=== PATIENT | female | born 1960 | race Two or more races ===

== ENCOUNTER → 2017-09-23 07:27 | Outpatient (CLI) | payer OTHER | END | disposition home or self-care (01) | LOC: LAB 07:27 | DX: M45.0 Ankylosing spondylitis of multiple sites in spine (principal); M35.09 Sjogren syndrome with other organ involvement; M32.8 Other forms of systemic lupus erythematosus; L93.2 Other local lupus erythematosus; M13.88 Other specified arthritis, other site; M05.40 Rheumatoid myopathy with rheumatoid arthritis of unspecified site; M05.00 Felty's syndrome, unspecified site ==

== ENCOUNTER → 2017-10-03 07:09 | Outpatient (CLI) | payer OTHER | END | disposition home or self-care (01) | LOC: LAB 07:09 | DX: E78.00 Pure hypercholesterolemia, unspecified (principal) ==

== ENCOUNTER 2017-10-03 08:39 | Outpatient (CLI) | payer OTHER | END 2017-10-03 08:49 | disposition home or self-care (01) | LOC: LAB 08:39 | DX: R10.13 Epigastric pain (principal) ==

== ENCOUNTER 2017-10-04 07:54 | Outpatient (CLI) | payer OTHER | END 2017-10-04 08:55 | disposition home or self-care (01) | LOC: TOM 07:54 | DX: R10.13 Epigastric pain (principal); R63.4 Abnormal weight loss ==

== ENCOUNTER → 2019-11-05 | Outpatient (CLI) | payer OTHER | END | disposition home or self-care (01) | LOC: MRI 10:15 | PROVIDERS: ATTEND Physical Medicine & Rehabilitation | DX: M54.5 Low back pain (principal); M54.11 Radiculopathy, occipito-atlanto-axial region | CPT/HCPCS: 72148 ==

== ENCOUNTER → 2019-11-12 | Outpatient (CLI) | payer OTHER | END | disposition home or self-care (01) | LOC: RAD 11:31 | PROVIDERS: ATTEND Physical Medicine & Rehabilitation | DX: M54.2 Cervicalgia (principal); M54.5 Low back pain; M43.16 Spondylolisthesis, lumbar region ==

== ENCOUNTER → 2020-03-22 07:39 | Outpatient (CLI) | payer OTHER | END | disposition home or self-care (01) | LOC: LAB 07:39 | PROVIDERS: ATTEND Internal Medicine Gastroenterology | DX: K29.30 Chronic superficial gastritis without bleeding (principal); R63.4 Abnormal weight loss ==

== ENCOUNTER 2020-03-22 08:15 | Outpatient (CLI) | payer OTHER | END 2020-03-22 08:25 | disposition HB | LOC: SONOGRAMA 08:15 | PROVIDERS: ATTEND Internal Medicine Gastroenterology | DX: R10.84 Generalized abdominal pain (principal); K29.30 Chronic superficial gastritis without bleeding; R63.4 Abnormal weight loss ==